=== PATIENT | female | born 1955 | race Hispanic/Latino ===

== ENCOUNTER 2020-02-15 10:59 | Inpatient (IN) | payer OTHER ==
[~2020-02-15] VITALS: Ht 157.5 cm; Wt 72.3 kg
[2020-02-15] MEDS ORDERED: ONDANSETRON HCL INJ 2MG/ML 2ML 2 MG/ML VIAL IV STA (11:03)
[2020-02-15] MEDS ORDERED: MORPHINE SULFATE INJ 4 MG/ML INJ 1ML IV STA (11:03)
[2020-02-15] MEDS ORDERED: SODIUM CHLORIDE 0.9% 1000ML 1,000 ML IV STA (11:03)
[2020-02-15] MEDS ORDERED: ASPIRIN 81 MG CHEW TAB PO ONE (11:15)
[2020-02-15 11:54] LABS: BASOPHILS % 0.2 % (0.0-1.0); EOSINOPHILS % 0.1 % (0.0-6.0); HEMATOCRIT 41.4 % (34.2-44.1); HEMOGLOBIN 13.3 g/dL (12.0-16.0); LYMPHOCYTES # (AUTO) 0.9 (1.0-3.2); LYMPHOCYTES % 5.3 % (18.0-39.1); MEAN CORPUSCULAR HEMOGLOBIN 26.1 pg (28-32); MEAN CORPUSCULAR HGB CONC 32.1 g/dL (31-35); MEAN CORPUSCULAR VOLUME 81.2 fL (81-99); MONOCYTES # (AUTO) 0.8 (0.2-0.8); MONOCYTES % 4.6 % (4.4-11.3); NEUTROPHILS # (AUTO) 15.3 (2.1-6.9); NEUTROPHILS % 89.3 % (38.7-80.0); PLATELET COUNT 403 x10e3/uL (140-360); RED CELL DISTRIBUTION WIDTH 13.9 % (11.7-14.4)
[2020-02-15] MEDS ORDERED: HYDRALAZINE HCL 20 MG/ML VIAL IV PRN (12:00)
[2020-02-15 12:15] LABS: ALANINE AMINOTRANSFERASE 54 IU/L (0-55); ALBUMIN 3.7 g/dL (3.5-5.0); ALKALINE PHOSPHATASE 91 IU/L (40-150); ANION GAP 12.7 mmol/L (8-16); BLOOD UREA NITROGEN 14 mg/dL (7-26); BUN/CREATININE RATIO 19 (6-25); CALCIUM 9.1 mg/dL (8.4-10.2); CARBON DIOXIDE 28 mmol/L (22-29); CHLORIDE 101 mmol/L (98-107); CREATINE KINASE 70 IU/L (29-168); CREATININE, SERUM 0.75 mg/dL (0.57-1.11); EST GLOMERULAR FILTRATION RATE > 60 ML/MIN (60-); GLUCOSE 130 mg/dL (74-118); POTASSIUM 3.7 mmol/L (3.5-5.1); SODIUM 138 mmol/L (136-145)
[2020-02-15 12:26] LABS: CREATINE KINASE MB < 1.00 ng/mL (0-4.3)
--- NOTE | 2020-02-15 12:32 | Diagnostic Imaging Report ---
EXAM: Right upper quadrant abdominal ultrasound INDICATION: Right upper quadrant pain COMPARISON: None. TECHNIQUE: Transverse and longitudinal images of the right upper quadrant abdomen were obtained FINDINGS: Liver: Size: 13.5 cm in the right midclavicular line, normal Appearance: Normal echogenicity, smooth contour Mass: No focal masses Gallbladder: Numerous echogenic gallstones within the gallbladder. No gallbladder wall thickening, gallbladder distention or pericholecystic fluid. Positive sonographic Jaquez's sign. Gallbladder wall measures 2 mm. Bile Ducts: Intrahepatic Ducts: No dilatation Extrahepatic Ducts: Common bile duct measures 20 mm and contains a 10 mm gallstone. Pancreas: Visualized portions of the pancreatic head, neck and proximal body are normal. Kidney: The right kidney measures 8.7 cm without evidence of hydronephrosis or stone. Vessels: Aorta: Visualized portions are normal Inferior Vena Cava: Visualized portions are normal Main Portal Vein: 1.1 cm, normal size with hepatopetal flow. Free Fluid: No ascites or pleural effusion IMPRESSION: Findings of cholelithiasis and acute cholecystitis with choledocholithiasis. Signed by: Mari Alvarez MD on 02/15/2020 12:29 PM
[2020-02-15] MEDS ORDERED: PIPER-TAZ 3.375 GM 50 ML IV SCH (12:45)
[2020-02-15] MEDS ORDERED: SODIUM CHLORIDE 0.9% 1000ML 1,000 ML IV SCH (12:45)
--- OUTSIDE RECORDS SUMMARY | 2020-02-15 12:59 | XMS REPORT ---
Author Author [facility] Organization [facility] Address Unknown Phone Unavailable Care Team Providers Care Hand Inspector Name Role Phone BRENDA PIERRE Unavailable Unavailable Problems This patient has no known problems. Allergies, Adverse Reactions, Alerts This patient has no known allergies or adverse reactions. Medications This patient has no known medications. Results Test Description Test Time Test Comments Text Results Atomic Results Result Comments GALLBLADDER 2020-02-15 12:24:00 [place] [address] Patient Name: SIDNEY ELIAS MR #: [id number] : 1955 Age/Sex: 65/F Req #: [id number] Adm Physician: Ordered by: BRENDA PIERRE DO Report #: [id number] Location: ER Room/Bed: Procedure: [id number] US/US GALLBLADDER Exam Date: 02/15/20 Exam Time: 1123 REPORT STATUS: Signed EXAM: Right upper quadrant abdominal ultrasound INDICATION: Right upper quadrant pain COMPARISON: None. TECHNIQUE: Transverse and longitudinal images of the right upper quadrant abdomen were obtained FINDINGS: Liver: Size: 13.5 cm in the right midclavicular line, normal Appearance: Normal echogenicity, smooth contour Mass: No focal masses Gallbladder: Numerous echogenic gallstones within the gallbladder. No gallbladder wall thickening, gallbladder distention or pericholecystic fluid. Positive sonographic Jaquez's sign. Gallbladder wall measures 2 mm. Bile Ducts: Intrahepatic Ducts: No dilatation Extrahepatic Ducts: Common bile duct measures 20 mm and contains a 10 mm gallstone. Pancreas: Visualized portions of the pancreatic head, neck and proximal body are normal. Kidney: The right kidney measures 8.7 cm without evidence of hydronephrosis or stone. Vessels: Aorta: Visualized portions are normal Inferior Vena Cava: Visualized portions are normal Main Portal Vein: 1.1 cm, normal size with hepatopetal flow. Free Fluid: No ascites or pleural effusion IMPRESSION: Findings of cholelithiasis and acute cholecystitis with choledocholithiasis. Signed by: Chastity Escobar MD on 02/15/2020 12:29 PM Dictated By: CHASTITY ESCOBAR MD [id number] Transcribed By: OSWALDO on 02/15/20 1229 COPY TO: BRENDA PIERRE DO
[2020-02-15 13:59] LABS: LIPASE 20 U/L (8-78)
[2020-02-15 14:45] LABS: CLARITY,URINE CLEAR (CLEAR); COLOR,URINE YELLOW (YELLOW)
[2020-02-15 14:46] LABS: BILIRUBIN,URINE NEGATIVE (NEGATIVE); KETONES,URINE NEGATIVE (NEGATIVE); LEUKOCYTE ESTERASE ,URINE NEGATIVE (NEGATIVE); NITRITE,URINE NEGATIVE (NEGATIVE); PROTEIN,URINE DIPSTICK NEGATIVE (NEGATIVE); URINE UROBILINOGEN 0.2 mg/dL (0.2 - 1)
[2020-02-15 14:49] LABS: BACTERIA,URINE FEW /HPF; EPITHELIAL CELLS,URINE RARE /LPF; RBC,URINE 0-5 /HPF (0-5)
[2020-02-15] MEDS ORDERED: HEPARIN SOD (PORCINE) 5,000 UNIT/ML VIAL SC ONE (15:30)
[2020-02-15] MEDS: DEXTROSE 5%/0.9% SOD CHL 1,000 ML IV SCH (15:57)
[2020-02-15 17:30] VITALS: BP 169/70
[2020-02-15 17:40] VITALS: BP 169/70
--- NOTE | 2020-02-15 17:40 | NUR ---
PATIENT ARRIVED ON THE UNIT AT 1714 PER STRETCHER FROM THE ER. PATIENT IS AWAKE, ALERT, AND IN STABLE CONDITION WITH NO S/S OF RESPIRATORY DISTRESS. PATIENT C/O RIGHT SIDED ABD PAIN 10/10. IV TO LEFT AC WITH FLUIDS INFUSING. SKINS INTACT. BED ALARM APPLIED. PATIENT IS NPO FOR PROCEDURE, MRI MRCP, TOMORROW. CALL LIGHT IS WITHIN REACH, PATIENT INSTRUCTED TO CALL FOR ASSISTANCE NEEDED.
[2020-02-15] MEDS: FAMOTIDINE 20 MG/2 ML VIAL IV SCH (17:54)
[2020-02-15] MEDS: ONDANSETRON HCL INJ 2MG/ML 2ML 2 MG/ML VIAL IV PRN ×2 (17:57→22:00)
[2020-02-15] MEDS: MORPHINE SULFATE INJ 4 MG/ML INJ 1ML IV PRN ×2 (17:58→22:00)
[2020-02-15] MEDS ORDERED: ATROPINE SULFATE 1 MG/ML VIAL ONE (18:23)
[2020-02-15] MEDS ORDERED: CEFAZOLIN SOD 1 GM VIAL ONE (18:23)
[2020-02-15] MEDS ORDERED: DEXAMETHASONE SOD PHOS INJ 4 MG/ML VIAL ONE (18:23)
[2020-02-15] MEDS ORDERED: ROCURONIUM BROMIDE 10 MG/ML 5ML VIAL IV ONE (18:23)
[2020-02-15] MEDS ORDERED: ONDANSETRON HCL INJ 2MG/ML 2ML 2 MG/ML VIAL ONE (18:23)
[2020-02-15] MEDS ORDERED: NEOSTIGMINE 1 MG/ML 10ML VIAL ONE (18:23)
[2020-02-15] MEDS ORDERED: PROPOFOL IV EMULSION 10 MG/ML 20 ML VIAL ONE (18:23)
[2020-02-15 19:09] VITALS: BP 158/64
--- NOTE | 2020-02-15 19:18 | NUR ---
DR. PARK INFORMED THAT MRI MRCP WILL BE RESCHEDULE TO TOMORROW. RECEIVED CLEAR LIQUID DIET ORDER FOR TODAY.
--- NOTE | 2020-02-15 19:19 | NUR ---
PATIENT IS IN STABLE CONDITION WITH NO S/S OF RESPIRATORY DISTRESS. PAIN MEDICATION GIVEN AND PATIENT STATED DECREASE PAIN RATE 7/10 TO RIGHT SIDE OF ABD. IV FLUIDS INFUSING. BED ALARM APPLIED. CALL LIGHT IS WITHIN REACH, PATIENT INSTRUCTED TO CALL FOR ASSISTANCE NEEDED. BEDSIDE REPORT GIVEN TO ONCOMING NURSE.
--- NOTE | 2020-02-15 19:30 | NUR ---
Pt visited in room during nursing rounds. Patient alert and oriented x3. No distress noted. Pt has intermittent pain on right side of abdomen. Pt on IVF (D5NS at 100ml/hr). On IV antibiotic treatment. Will medicate pt accordingly. Pt aware she is scheduled for MRI MRCP tomorrow and will be NPO at midnight. Call barrera within reach. Will monitor pt closely.
[2020-02-15 19:33] VITALS: BP 126/57
[2020-02-15] MEDS: PIPER-TAZ 3.375 GM 50 ML IV SCH (20:46)
[2020-02-15 21:00] VITALS: BP 126/57
--- NOTE | 2020-02-15 21:45 | History and Physical ---
PRIMARY CARE DOCTOR: Dr. Rolly Decker. CHIEF COMPLAINT: Epigastric pain. HISTORY OF PRESENT ILLNESS: A 65-year-old woman, healthy, who was awoken with epigastric pain radiating to the back and around to both sides of her abdomen, but more noticeably on the right. The patient had some subjective warmth, but no fever. She is nauseated, but no vomiting. No appetite. Never had anything like this before. The pain was so severe to the point that she could not sleep at all. Finally, the patient came to the emergency room. The patient denies any shortness of breath. No diarrhea, in fact had a normal bowel movement earlier today. PAST MEDICAL AND SURGICAL HISTORY: 1. Hypertension. 2. Back surgery. MEDICATIONS: Please see medication reconciliation form. ALLERGIES: TO TRAMADOL. SOCIAL HISTORY: Social drinker. No alcohol. Last drink was two weeks ago. FAMILY HISTORY: Hypertension. REVIEW OF SYSTEMS: A 10-point review of system obtained and nothing else is significant other than what is stated in HPI. PHYSICAL EXAMINATION: VITAL SIGNS: Temperature 97.4. Initial blood pressure was 200/87, currently 161/68, pulse is anywhere from 56-87, and respiratory rate 16. GENERAL: No acute distress. SKIN: No rash. HEENT: Anicteric. Oropharynx is clear. LUNGS: Clear. HEART: Regular rate and rhythm. Normal S1, S2. GI: Abdomen is soft. Right upper quadrant tenderness to palpation. MUSCULOSKELETAL: Painless range of motion in joints. NEUROLOGIC: Alert and oriented x3. Cranial nerve nerves II through XII grossly intact. PSYCHIATRIC: No hallucination. LABORATORY DATA: Creatinine 0.75, sugar 130, AST 97. Troponin was negative. Both total bilirubin and alkaline phosphatase are normal. Albumin is 3.7. White count 17, hemoglobin 13, platelet count 403. UA is negative. Her lipase was normal. Abdominal ultrasound shows acute cholecystitis with both cholelithiasis and choledocholithiasis. EKG nonspecific. ASSESSMENT AND PLAN: 1. Acute cholecystitis with cholelithiasis and choledocholithiasis. We will get a stat MRCP. I will put her on Zosyn for possible cholangitis. I will consult Gastrointestinal for possible ERCP and also consult Surgery for possible laparoscopic cholecystectomy. We will make the patient n.p.o. with IV fluids and also IV morphine for pain. I explained everything to the patient. The patient understands and is in agreement. 2. Hypertensive crisis due to severe abdominal pain. We will continue IV hydralazine as needed. 3. Gastrointestinal and deep venous thrombosis prophylaxis. Pepcid IV and one dose of heparin subcu x1 right now. I will hold further just in case surgery will be done tomorrow. Yiching MD JENNIFER Narayanan/DAVID /[id number] cc: Rolly Decker
[2020-02-16] VITALS (8 sets, daily range): BP systolic 117–136; BP diastolic 57–63
--- NOTE | 2020-02-16 00:56 | Consultation ---
DATE OF CONSULTATION: GI consult received. Detail consult to follow. Awaiting MRCP to be done. ERCP according to MRCP findings. Al Soliz MD SA/DAVID /[id number]
[2020-02-16] MEDS: DEXTROSE 5%/0.9% SOD CHL 1,000 ML IV SCH ×2 (03:07→11:30)
[2020-02-16] MEDS: MORPHINE SULFATE INJ 4 MG/ML INJ 1ML IV PRN ×4 (04:03→20:37)
[2020-02-16] MEDS: ONDANSETRON HCL INJ 2MG/ML 2ML 2 MG/ML VIAL IV PRN ×4 (04:03→20:37)
[2020-02-16] MEDS: PIPER-TAZ 3.375 GM 50 ML IV SCH ×3 (05:14→20:37)
[2020-02-16 06:12] LABS: BASOPHILS % 0.3 % (0.0-1.0); EOSINOPHILS # (AUTO) 0.1 (0.0-0.4); EOSINOPHILS % 0.5 % (0.0-6.0); HEMATOCRIT 36.8 % (34.2-44.1); HEMOGLOBIN 11.8 g/dL (12.0-16.0); LYMPHOCYTES # (AUTO) 1.3 (1.0-3.2); MEAN CORPUSCULAR HEMOGLOBIN 26.5 pg (28-32); MEAN CORPUSCULAR HGB CONC 32.1 g/dL (31-35); MEAN CORPUSCULAR VOLUME 82.7 fL (81-99); MONOCYTES # (AUTO) 0.9 (0.2-0.8); MONOCYTES % 8.7 % (4.4-11.3); NEUTROPHILS # (AUTO) 8.3 (2.1-6.9); NEUTROPHILS % 78.1 % (38.7-80.0); PLATELET COUNT 291 x10e3/uL (140-360); RED BLOOD COUNT 4.45 x10e6/uL (3.6-5.1); RED CELL DISTRIBUTION WIDTH 14.2 % (11.7-14.4)
[2020-02-16 06:20] LABS: INR 1.05; PROTHROMBIN TIME 14.4 seconds (11.9-14.5)
[2020-02-16 06:21] LABS: PARTIAL THROMBOPLASTIN TIME 29.6 seconds (23.8-35.5)
[2020-02-16 06:31] LABS: CREATINE KINASE MB 0.4 ng/mL (0-5.0)
[2020-02-16 06:57] LABS: ALANINE AMINOTRANSFERASE 122 IU/L (0-55); ALBUMIN 2.8 g/dL (3.5-5.0); ALBUMIN/GLOBULIN RATIO 0.8 (0.8-2.0); ALKALINE PHOSPHATASE 69 IU/L (40-150); ANION GAP 12.3 mmol/L (8-16); BLOOD UREA NITROGEN 9 mg/dL (7-26); BUN/CREATININE RATIO 11 (6-25); CALCIUM 8.7 mg/dL (8.4-10.2); CARBON DIOXIDE 28 mmol/L (22-29); CHLORIDE 104 mmol/L (98-107); CREATININE, SERUM 0.83 mg/dL (0.57-1.11); EST GLOMERULAR FILTRATION RATE > 60 ML/MIN (60-); GLUCOSE 115 mg/dL (74-118); POTASSIUM 3.3 mmol/L (3.5-5.1); SODIUM 141 mmol/L (136-145)
[2020-02-16] MEDS ORDERED: POTASSIUM CHLORIDE 10MEQ/100ML 300 ML IV ONE (09:00)
[2020-02-16] MEDS: FAMOTIDINE 20 MG/2 ML VIAL IV SCH ×2 (09:35→17:39)
--- NOTE | 2020-02-16 10:43 | NUR ---
GASTROENTEROLOGY CONSULTATION REASON FOR CONSULT: choledocholithiasis REFERRING PHYSICIAN: Dr. Young CHIEF COMPLAINT: Epigastric pain. HISTORY OF PRESENT ILLNESS: Patient is a 65-year-old woman with PMH of HTN presented with epigastric pain radiating to the back that started last Wednesday along with some nausea, but no vomiting. She states she has never had such incident before. Sh e denies any melena, hematochezia or hematemesis. She states she has never had an EGD or colonoscopy in the past. She denies any fevers, chills or SOB. PAST MEDICAL HISTORY 1. Hypertension. PAST SURGICAL HISTORY 1. Back Pain MEDICATIONS: Please see medication reconciliation form. ALLERGIES: TRAMADOL. SOCIAL HISTORY: Occasional Social drinker. Denies smoking history or recreational drug use. FAMILY HISTORY: Hypertension. REVIEW OF SYSTEMS: A 10-point review of system obtained and negative otherwise stated in HPI. PHYSICAL EXAMINATION: VITAL SIGNS: See EMAR. Reviewed GENERAL: No acute distress. SKIN: No rash. HEENT: Anicteric. Atraumatic LUNGS: Clear. HEART: Regular rate and rhythm. Normal S1, S2. GI: Abdomen is soft. Right upper quadrant and epigastric tenderness MUSCULOSKELETAL: ROM wnl. NEUROLOGIC: Alert and oriented x3. PSYCHIATRIC: Normal mood and affect. LABORATORY DATA: PT 14.4, INR 1.5, AST 70, ALT 122 Hgb 11.8 Hct 36.8 IMAGING: Abdominal Imaging shows cholecystitis and choledocholithasis. ASSESSMENT 1. Abdominal pain, nausea/vomiting - secondary to Acute cholecystitis with cholelithiasis and choledocholithiasis. 2. Elevated LFTs 3. Abnormal imaging PLAN: - Awaiting STAT MRCP that was ordered yesterday - if positive patient may need ERCP -Agree w/ Zosyn for possible cholangitis. - Continue NPO and IV fluids - Surgery has been consulted Discussed the above w/Dr. Al Soliz
[2020-02-16] MEDS ORDERED: HYDROCHLOROTHIA25 MG (10:58)
[2020-02-16] MEDS ORDERED: METOPROLOL TAR100 MG PO (10:58)
[2020-02-16] MEDS ORDERED: OMEPRAZOLE20 MG PO (10:58)
[2020-02-16] MEDS ORDERED: BENICAR20 MG PO (10:58)
--- NOTE | 2020-02-16 13:04 | Diagnostic Imaging Report ---
TECHNIQUE: MRI of the abdomen and MRCP WITHOUT intravenous contrast. 3-D volume reconstructions were obtained to evaluate the biliary ductal system. INDICATION: ^R/O CBD STONE. COMPARISON: Ultrasound from 02/15/2020. FINDINGS: ABSENCE OF INTRAVENOUS CONTRAST DECREASES SENSITIVITY FOR DETECTION OF FOCAL LESIONS AND VASCULAR PATHOLOGY. LOWER THORAX: Unremarkable. LIVER: Mild diffuse loss of signal in the liver on out of phase imaging. No focal hepatic lesions. BILIARY: The gallbladder contains multiple stones which measure up to 1.2 cm. There is mild gallbladder wall thickening with adjacent pericholecystic inflammation. The common bile duct is normal in diameter at 0.3 cm. No choledocholithiasis. SPLEEN: No splenomegaly. PANCREAS: No focal masses or ductal dilatation. ADRENALS: No adrenal nodules. KIDNEYS/URETERS: No hydronephrosis or solid mass lesions. PERITONEUM/RETROPERITONEUM: No free fluid. LYMPH NODES: No lymphadenopathy. VESSELS: Unremarkable. GI TRACT: The sigmoid colon is mildly prominent at up to 5.6 cm. No bowel wall thickening. BONES AND SOFT TISSUES: Unremarkable. IMPRESSION: 1. No biliary ductal dilation or choledocholithiasis. 2. Acute calculus cholecystitis. 3. Mild fatty infiltration of the liver. Signed by: Juan Ramon Paulino JR, MD on 02/16/2020 1:01 PM
--- NOTE | 2020-02-16 13:39 | NUR ---
results of MRCP sent to GI per MD request. patient resting in bed at this time, denies concerns. wctm.
--- NOTE | 2020-02-16 16:33 | Consultation ---
DATE OF CONSULTATION: 02/16/2020 CHIEF COMPLAINT: Abdominal pain. HISTORY OF PRESENT ILLNESS: The patient is a 65-year-old female, admitted with abdominal pain in epigastric region, radiating to the back with nausea. No vomiting. No fever, chills, or diarrhea. The patient had no prior episodes. PAST MEDICAL HISTORY: Positive for hypertension. PAST SURGICAL HISTORY: Positive for back surgery. ALLERGIES: THE PATIENT IS ALLERGIC TO TRAMADOL. SOCIAL HABITS: She denies smoking, but drinks socially. REVIEW OF SYSTEMS: No cough, chest pain, shortness of breath, fever, or chills. PHYSICAL EXAMINATION: VITAL SIGNS: Stable, afebrile. GENERAL: She is awake, alert, in moderate discomfort. HEENT: Sclerae nonicteric. NECK: Supple. LUNGS: Clear. HEART: Regular rate and rhythm. ABDOMEN: Soft with some guarding tenderness right upper quadrant without rebound. EXTREMITIES: No cyanosis or edema. LABORATORY DATA: White cell count 17, hemoglobin of 12, and platelet count 291. Creatinine of 0.8. Liver function test, bilirubin is 0.7. Lipase 20. Ultrasound of gallbladder showed gallstones with stone in the common bile duct visualized. ASSESSMENT: Cholelithiasis and choledocholithiasis. PLAN: Laparoscopic cholecystectomy once bile duct has been cleared by ERCP. Humphrey Mendez MD DNL/MODL /[id number]
--- NOTE | 2020-02-16 19:20 | NUR ---
Pt visited in room during nursing rounds. Patient alert and oriented x3. No distress noted. Pt has intermittent pain on right side of abdomen. Pt on IVF (D5NS at 100ml/hr). On IV antibiotic treatment. Will medicate pt accordingly. Pt aware she is scheduled for Laparoscopic and possible Open Cholecystectomt tomorrow and will be NPO at midnight. Call barrera within reach. Will monitor pt closely.
--- NOTE | 2020-02-16 19:54 | Consultation ---
DATE OF CONSULTATION: GI Consult Note Consult note has already been dictated and typed by my physician office assistant receptionist, Lora. I confirmed the finding. The patient was seen and evaluated at the bedside. I concur with the plan of care as documented. Al Soliz MD SA/DAVID /[id number]
[2020-02-17] VITALS (9 sets, daily range): BP systolic 115–143; BP diastolic 53–90
[2020-02-17] MEDS: DEXTROSE 5%/0.9% SOD CHL 1,000 ML IV SCH ×3 (02:24→18:58)
--- NOTE | 2020-02-17 05:23 | NUR ---
Pt awake and about to take a shower this morning. No discomfort noted at this time.
[2020-02-17] MEDS: PIPER-TAZ 3.375 GM 50 ML IV SCH ×3 (06:00→20:56)
[2020-02-17] MEDS: MORPHINE SULFATE INJ 4 MG/ML INJ 1ML IV PRN ×3 (06:00→19:09)
[2020-02-17] MEDS: ONDANSETRON HCL INJ 2MG/ML 2ML 2 MG/ML VIAL IV PRN ×3 (06:00→19:09)
[2020-02-17 07:27] LABS: ALBUMIN 2.6 g/dL (3.5-5.0); BILIRUBIN,DIRECT 0.4 mg/dL (0.0-0.5)
[2020-02-17] MEDS ORDERED: FENTANYL CITRATE/PF 100MCG/2 ML INJ ONE ×2 (07:58→09:35)
--- NOTE | 2020-02-17 08:00 | NUR ---
patient ready for surgery. jewelry removed and placed into her purse, clean gown placed after chg bath. waiting for OR staff to pick patient up.
[2020-02-17] MEDS ORDERED: BUPIVACAINE HCL 0.5% INJ 30 ML VIAL INJ ONE (08:05)
--- NOTE | 2020-02-17 08:11 | NUR ---
patient left unit to go to OR.
[2020-02-17] MEDS: FAMOTIDINE 20 MG/2 ML VIAL IV SCH (08:34)
--- NOTE | 2020-02-17 10:06 | NUR ---
patient returned to unit from pacu. 4 lap sites to abdomen, covered with bandaids. MARCIA drain in place, no drainage to bulb. patient denies pain at this time. liya.
[2020-02-17] MEDS ORDERED: ACETAMINOPHEN/CODEINE 300MG - 30MG TAB PO PRN (13:15)
--- NOTE | 2020-02-17 23:09 | Operative Report ---
DATE OF PROCEDURE: 02/17/2020 SURGEON: Humphrey Mendez MD PREOPERATIVE DIAGNOSIS: Cholecystitis. POSTOPERATIVE DIAGNOSIS: Cholecystitis. OPERATIVE PROCEDURE: Laparoscopic cholecystectomy. ANESTHESIA: General. INDICATIONS: 65-year-old female with right upper quadrant abdominal pain with ultrasound and CT scan showing thickened gallbladder wall with gallstones. The patient consented for laparoscopic cholecystectomy. Attendant risks discussed. PROCEDURE FINDINGS: Gangrenous cholecystitis. DESCRIPTION OF PROCEDURE: The patient was brought to the OR, intubated, the abdomen was prepped and draped in sterile fashion. An infraumbilical incision was made and a 10 mm port inserted. Insufflation then began under direct vision. Other port sites placed in the midepigastric and right upper quadrant. Gallbladder was grossly inflamed and distended. It was gangrenous, it was decompressed with a needle. We then retracted the fundus in a cephalad direction and the neck of the gallbladder retracted laterally with blunt dissection. Cystic artery was isolated, triple clipped and divided. Cystic duct was also isolated. The junction of common bile duct was noted before triple clipping the cystic duct and divided between clips. The gallbladder detached from the liver with cautery and taken out through the umbilical port site. Operative field was then irrigated. Hemostasis achieved in the gallbladder fossa. All ports removed under direct vision. Fascia was closed with 0 Vicryl, skin was then closed with subcuticular stitch. The patient was extubated and transported to recovery room. BLOOD LOSS: 10 mL. Humphrey Mendez MD DNL/MODL /[id number]
[2020-02-18] VITALS (8 sets, daily range): BP systolic 135–154; BP diastolic 56–69
[2020-02-18] MEDS: DEXTROSE 5%/0.9% SOD CHL 1,000 ML IV SCH (02:25)
[2020-02-18] MEDS: MORPHINE SULFATE INJ 4 MG/ML INJ 1ML IV PRN ×3 (02:25→14:34)
[2020-02-18] MEDS: ONDANSETRON HCL INJ 2MG/ML 2ML 2 MG/ML VIAL IV PRN ×3 (02:25→14:34)
[2020-02-18] MEDS: PIPER-TAZ 3.375 GM 50 ML IV SCH ×3 (05:00→21:00)
--- NOTE | 2020-02-18 07:08 | NUR ---
BEDSIDE SHIFT REPORT RECEIVED FROM PM NURSE. PT AWAKE, ALERT, ORIENTED, NO SIGNS OF DISTRESS.
[2020-02-18] MEDS: METOPROLOL TARTRATE 50 MG TAB PO SCH (10:12)
[2020-02-18] MEDS: HYDROCHLOROTHIAZIDE 25 MG TAB PO SCH (10:12)
[2020-02-18] MEDS: PANTOPRAZOLE SOD 40 MG TABEC PO SCH (14:42)
[2020-02-19] VITALS: BP 149/73
[2020-02-19] MEDS: MORPHINE SULFATE INJ 4 MG/ML INJ 1ML IV PRN ×2 (00:27→12:30)
[2020-02-19] MEDS: ONDANSETRON HCL INJ 2MG/ML 2ML 2 MG/ML VIAL IV PRN ×2 (00:27→12:30)
[2020-02-19 04:00] VITALS: BP 139/63
[2020-02-19] MEDS: PIPER-TAZ 3.375 GM 50 ML IV SCH ×2 (05:00→13:20)
--- NOTE | 2020-02-19 07:05 | NUR ---
RECEIVED BEDSIDE SHIFT REPORT FROM OFF GOING NURSE. PATIENT IS RESTING IN BED. NO ACUTE DISTRESS NOTED AT THIS TIME. CALL LIGHT WITHIN REACH. BED IN THE LOWEST POSITION.
[2020-02-19 07:59] VITALS: BP 162/70
[2020-02-19] MEDS: HYDROCHLOROTHIAZIDE 25 MG TAB PO SCH (08:15)
[2020-02-19] MEDS: PANTOPRAZOLE SOD 40 MG TABEC PO SCH (08:15)
[2020-02-19] MEDS: METOPROLOL TARTRATE 50 MG TAB PO SCH (08:16)
[2020-02-19 08:20] VITALS: BP 162/70
[2020-02-19] MEDS ORDERED: HYDROCHLOROTHIAZIDE 25 MG TAB PO SCH (09:00)
[2020-02-19 12:00] VITALS: BP 172/74
--- NOTE | 2020-02-19 12:25 | NUR ---
REMOVED MARCIA DRAIN WITH TIP INTACT, PATIENT TOLERATED IT WELL.
[2020-02-19 12:34] VITALS: BP 148/84
[2020-02-19] MEDS ORDERED: TYLENOL WITH C1 EACH PO (14:17)
--- NOTE | 2020-02-19 15:01 | NUR ---
RECEIVED DC ORDER FROM MD. PATIENT IS IN STABLE CONDITION. IV LINE TO LEFT ANTECUBITAL DCD WITH TIP INTACT, PRESSURE APPLIED TO SITE, NO BLEEDING NOTED. DISCHARGE TEACHING PROVIDED, PATIENT VERBALIZED UNDERSTANDING. DISCHARGE FOLDER WITH PAPERWORK AND PRESCRIPTIONS ON HAND. PATIENT ACCOMPANIED TO PRIVATE AUTO VIA WHEELCHAIR BY STAFF.
--- NOTE | 2020-02-20 00:06 | Discharge Summary ---
PRIMARY CARE DOCTOR: Dr. Rolly Decker. FINAL DIAGNOSIS: Acute gangrenous cholecystitis. SECONDARY DIAGNOSES: 1. Gastroesophageal reflux disease. 2. Hypertension. CONSULTANTS: 1. Dr. Kelly, GI. 2. Dr. Humphrey Mendez, Surgery. PROCEDURES/STUDIES PERFORMED: 1. Laparoscopic cholecystectomy. 2. MRCP. 3. Gallbladder ultrasound. HISTORY: Per [facility]. HOSPITAL COURSE: The patient was admitted. Initially, abdominal ultrasound showed possible choledocholithiasis; however, MRCP was negative. The patient was on Zosyn. Subsequently, the patient underwent laparoscopic cholecystectomy for acute gangrenous cholecystitis. MARCIA drain was put in. Today is postop day #2. The patient is tolerating p.o. MARCIA drain was removed. The patient will follow up with Dr. Mendez next week. I have discussed this with Dr. Mendez. The patient will go home with Tylenol No. 3, dispensed 30 pills, no refills. SCREEN MAKING SUPERVISOR database was reviewed. The patient was seen and examined today. It took 32 minutes total to discharge this patient. CONDITION ON DISCHARGE: Improved. DISCHARGE MEDICATIONS: Please see medication reconciliation form. Yiching MD JENNIFER Narayanan/DAVID /[id number] cc: Rolly Decker
== END 2020-02-19 15:01 | disposition home or self-care (01) | DRG 418 ==
LOC: ER 10:59 → ERHOLD 12:43 → MED/SURG3 17:28
PROVIDERS: ADMIT Internal Medicine; ATTEND Internal Medicine
PROC: 0FT44ZZ Resection of Gallbladder, Percutaneous Endoscopic Approach (ICD-10-PCS; principal; 2020-02-17 08:20)
DX: K80.42 Calculus of bile duct with acute cholecystitis without obstruction (principal); I16.9 Hypertensive crisis, unspecified; Z88.5 Allergy status to narcotic agent; K82.A1 Gangrene of gallbladder in cholecystitis; K21.9 Gastro-esophageal reflux disease without esophagitis; I10 Essential (primary) hypertension
CPT/HCPCS: 36415; 74181; 76705; 80053; 80076; 81001; 82550; 82553; 83690; 83735; 84484; 85025; 85610; 85730; 87635; 88304; 93005; 97139; 99284; J0360; J0461; J0690; J1100; J1644; J2270; J2405; J2543; J2710; J3010; J3480; J7030; J7042

== ENCOUNTER 2020-04-07 13:28 | Emergency (ER) | payer OTHER ==
[~2020-04-07] VITALS: Ht 157.5 cm; Wt 72.1 kg
[~2020-04-07 13:28] MED LIST: BENICAR20 MG PO; HYDROCHLOROTHIA25 MG; METOPROLOL TAR100 MG PO; OMEPRAZOLE20 MG PO; TYLENOL WITH C1 EACH PO
--- NOTE | 2020-04-07 13:53 | Emergency Department Note ---
History of Present Illnes History of Present Illness Chief Complaint: COVID PUI History of Present Illness This is a 65 year old female weak and cough dry hacking. whole family with covid. pt told yesterday she is positive. pt had test done 03/27 and just got told yesterday of result. Historian: Patient Arrival Mode: Car Freelance Court Stenographer Required: No Severity: moderate Onset quality: gradual Timing of current episode: intermittent Progression: waxing and waning Chronicity: new Context: Reports recent illness Relieving factors: none Exacerbating factors: none Associated symptoms: Reports cough, Reports fever/chills, Reports other (achy all over); Denies shortness of breath Treatments prior to arrival: none Past Medical/Family History Physician Review I have reviewed the patient's past medical and family history. Any updates have been documented here. Past Medical History Recent Fever: Yes Clinical Suspicion of Infectio: Yes New/Unexplained Change in Ment: No Past Medical History: Hypertension, UTI's, Anxiety, GERD Past Surgical History: Back Surgery Other Surgery: BACK SURGEY (2007- NO METAL PLACED) Social History Smoking Cessation: Never Smoker Counseling Performed: No Alcohol Use: None Any Illegal Drug Use: No TB Exposure/Symptoms: No Physically hurt or threatened: No Other Last Tetanus: UTD Last Flu: u Last Pneumovax: u Review of Systems Review of Systems Constitutional: Reports as per HPI EENTM: Reports no symptoms Cardiovascular: Reports no symptoms Respiratory: Reports as per HPI Gastrointestinal: Reports no symptoms Genitourinary: Reports no symptoms Musculoskeletal: Reports no symptoms Integumentary: Reports no symptoms Neurological: Reports no symptoms Psychological: Reports no symptoms Endocrine: Reports no symptoms Hematological/Lymphatic: Reports no symptoms Physical Exam Related Data Allergies: Coded Allergies: tramadol (Verified Adverse Reaction, Unknown, VOMITING, 02/15/20) Triage Vital Signs Vital Signs Date Time Temp Pulse Resp B/P (MAP) Pulse Ox O2 Delivery O2 Flow Rate FiO2 04/07/20 13:39 97.9 79 20 163/88 98 Vital signs reviewed: Yes Physical Exam CONSTITUTIONAL Constitutional: Present well-developed, Present well-nourished HENT HENT: Present normocephalic, Present atraumatic, Present oropharynx clear/moist, Present nose normal HENT L/R: Present left ext ear normal, Present right ext ear normal EYES Eyes: Reports PERRL, Reports conjunctivae normal NECK Neck: Present ROM normal PULMONARY Pulmonary: Present effort normal, Present other (decr BS's throughout) CARDIOVASCULAR Cardiovascular: Present regular rhythm, Present heart sounds normal, Present capillary refill normal, Present normal rate GASTROINTESTINAL Abdominal: Present soft, Present nontender, Present bowel sounds normal GENITOURINARY Genitourinary: Present exam deferred SKIN Skin: Present warm, Present dry MUSCULOSKELETAL Musculoskeletal: Present ROM normal NEUROLOGICAL Neurological: Present alert, Present oriented x 3, Present no gross motor or sensory deficits PSYCHOLOGICAL Psychological: Present mood/affect normal, Present judgement normal Assessment & Plan Medical Decision Making [facility] Reassessment Reassessment dc home with Zpak, f/u pcp, self-quarantine, proning, RTED prn Assessment & Plan Final Impression: (1) Viral bronchitis Depart Disposition: HOME, SELF-CARE Last Vital Signs Date Time Temp Pulse Resp B/P (MAP) Pulse Ox O2 Delivery O2 Flow Rate FiO2 04/07/20 13:39 97.9 79 20 163/88 98 Home Meds Reported Medications Acetaminophen With Codeine (TYLENOL WITH CODEINE #3 TABLET) 1 Each Tablet, 1 TAB PO Q4HR PRN for PAIN, TAB 02/19/20 Omeprazole (OMEPRAZOLE) 20 Mg Capsule.dr, 20 MG PO DAILY 02/16/20 Metoprolol Tartrate (METOPROLOL TARTRATE) 100 Mg Tablet, 100 MG PO DAILY, TAB 02/16/20 Hydrochlorothiazide (HYDROCHLOROTHIAZIDE) 25 Mg Tablet, 25 MG DAILY, #30 TAB 02/16/20 Olmesartan Medoxomil (BENICAR) 20 Mg Tablet, 40 MG PO DAILY, #30 TAB 02/16/20 ISAAK IRWIN MD Apr 07, 2020 13:53
== END 2020-04-07 15:47 | disposition home or self-care (01) ==
LOC: ER 13:28
DX: R05 Cough (principal); J20.8 Acute bronchitis due to other specified organisms; I10 Essential (primary) hypertension; K21.9 Gastro-esophageal reflux disease without esophagitis; F41.9 Anxiety disorder, unspecified
CPT/HCPCS: 99283

== ENCOUNTER 2021-07-23 20:15 | Emergency (ER) | payer BC, OTHER ==
[~2021-07-23] VITALS: Ht 157.5 cm; Wt 72.6 kg
[2021-07-23] MEDS ORDERED: SODIUM CHLORIDE 0.9% 1000ML 1,000 ML IV STA (20:26)
[2021-07-23] MEDS ORDERED: FAMOTIDINE 20 MG/2 ML VIAL IV STA (20:26)
[2021-07-23] MEDS ORDERED: ONDANSETRON HCL INJ 2MG/ML 2ML 2 MG/ML VIAL IV STA (20:26)
[2021-07-23 20:51] LABS: BASOPHILS % 0.3 % (0.0-1.0); EOSINOPHILS # (AUTO) 0.1 (0.0-0.4); EOSINOPHILS % 1.3 % (0.0-6.0); HEMATOCRIT 34.3 % (34.2-44.1); HEMOGLOBIN 11.4 g/dL (12.0-16.0); LYMPHOCYTES # (AUTO) 2.4 (1.0-3.2); LYMPHOCYTES % 30.9 % (18.0-39.1); MEAN CORPUSCULAR HEMOGLOBIN 26.8 pg (28-32); MEAN CORPUSCULAR HGB CONC 33.2 g/dL (31-35); MEAN CORPUSCULAR VOLUME 80.5 fL (81-99); MONOCYTES # (AUTO) 0.6 (0.2-0.8); MONOCYTES % 8.3 % (4.4-11.3); NEUTROPHILS # (AUTO) 4.6 (2.1-6.9); NEUTROPHILS % 58.8 % (38.7-80.0); PLATELET COUNT 325 x10e3/uL (140-360); RED BLOOD COUNT 4.26 x10e6/uL (3.6-5.1); RED CELL DISTRIBUTION WIDTH 12.7 % (11.7-14.4)
[2021-07-23 21:05] LABS: ALANINE AMINOTRANSFERASE 15 IU/L (0-55); ALBUMIN 3.3 g/dL (3.5-5.0); ALBUMIN/GLOBULIN RATIO 0.8 (0.8-2.0); ALKALINE PHOSPHATASE 79 IU/L (40-150); ANION GAP 12.3 mmol/L (8-16); BLOOD UREA NITROGEN 22 mg/dL (7-26); BUN/CREATININE RATIO 24 (6-25); CALCIUM 8.6 mg/dL (8.4-10.2); CARBON DIOXIDE 26 mmol/L (22-29); CHLORIDE 105 mmol/L (98-107); CREATINE KINASE 105 IU/L (29-168); CREATININE, SERUM 0.92 mg/dL (0.57-1.11); EST GLOMERULAR FILTRATION RATE 61 ML/MIN (60-); GLUCOSE 144 mg/dL (74-118); POTASSIUM 4.3 mmol/L (3.5-5.1); SODIUM 139 mmol/L (136-145)
[2021-07-23 21:12] LABS: CLARITY,URINE SL CLOUDY (CLEAR); COLOR,URINE YELLOW (YELLOW); KETONES,URINE TRACE (NEGATIVE); LEUKOCYTE ESTERASE ,URINE SMALL (NEGATIVE); NITRITE,URINE NEGATIVE (NEGATIVE); PROTEIN,URINE DIPSTICK NEGATIVE (NEGATIVE); URINE UROBILINOGEN 0.2 mg/dL (0.2 - 1)
[2021-07-23 21:23] LABS: BACTERIA,URINE MODERATE /HPF; EPITHELIAL CELLS,URINE MODERATE /LPF; RENAL EPITHELIAL CELLS,URINE RARE
[2021-07-23] MEDS ORDERED: HYDRALAZINE HCL 20 MG/ML VIAL IV STA (22:21)
[2021-07-23] MEDS ORDERED: SODIUM CHLORIDE 0.9% 50ML 50 ML ONE (22:22)
[2021-07-23] MEDS ORDERED: IOPAMIDOL 370 MG/ML 200 ML INFUS..BTL INJ ONE (22:22)
[2021-07-23] MEDS ORDERED: ONDANSETRON ODT4 MG PO (22:43)
[2021-07-23] MEDS ORDERED: CIPRO500 MG PO (22:43)
[2021-07-23] MEDS ORDERED: PEPCID20 MG PO (22:43)
== END 2021-07-24 00:23 | disposition home or self-care (01) ==
LOC: ER 21:06
DX: R10.13 Epigastric pain (principal); N39.0 Urinary tract infection, site not specified; R42 Dizziness and giddiness; I16.0 Hypertensive urgency; R94.31 Abnormal electrocardiogram [ECG] [EKG]; I10 Essential (primary) hypertension; F41.9 Anxiety disorder, unspecified; K21.9 Gastro-esophageal reflux disease without esophagitis
CPT/HCPCS: 36415; 70450; 74177; 80053; 81001; 82550; 82553; 83690; 84484; 85025; 93005; 99284; J0360; J2405; J7030; Q9967